=== PATIENT | female | born 1990 | race Two or more races ===

== ENCOUNTER 2021-09-11 10:36 | Inpatient (IN) | payer BC, OTHER ==
[~2021-09-11] VITALS: Ht 160 cm; Wt 153.5 kg
[2021-09-11] MEDS ORDERED: CHOLECALCIFEROL (VITD3) 2,000 UNIT CAP/TAB PO ONE (11:00)
[2021-09-11] MEDS ORDERED: methylPREDNISolone SOD SUCC 125 MG/2 ML VL IV ONE (11:00)
[2021-09-11] MEDS ORDERED: ASCORBIC ACID 500 MG TAB PO ONE (11:00)
[2021-09-11] MEDS ORDERED: ZINC SULFATE 220mg CAP or TAB PO ONE (11:00)
[2021-09-11 13:43] LABS: Basophils # (auto) 0 10 ^3/uL (0-0.2); Basophils % (auto) 0.3 % (0.0-2.0); Eosinophils # (auto) 0 10 ^3/uL (0-0.8); Hematocrit 41.3 % (36.0-46.0); Lymphocytes % (auto) 15.3 % (10.0-50.0); Mean Corpuscular Hemoglobin 27.1 pg (28.0-32.0); Mean Corpuscular Volume 79.6 fL (80.0-100.0); Monocytes # (auto) 0.5 10 ^3/uL (0-1.3); Monocytes % (auto) 7.6 % (0.0-12.0); Neutrophils # (auto) 5.1 10 ^3/uL (1.6-8.6); Neutrophils % (auto) 76.8 % (37.0-80.0); Nucleated Red Blood Cells % 0.1 %; Red Blood Cells 5.19 10^6/uL (4.0-5.20); Red Cell Distribution Width 13.6 % (11.8-14.3); White Blood Cell 6.6 10^3/uL (4.4-10.8)
[2021-09-11 14:07] LABS: Calcium 8.2 mg/dL (8.5-10.1); Potassium 4.2 mmol/L (3.5-5.1)
[2021-09-11 14:15] LABS: Bilirubin, Total 0.6 mg/dL (0.2-1.0); CRP High Sensitivity 10.7 mg/dL (< 0.3); Total Protein 8.1 g/dL (6.4-8.2)
[2021-09-11] MEDS ORDERED: AZITHROMYCIN 500MG/ 250ML 250 ML IV ONE (15:30)
[2021-09-11] MEDS ORDERED: LABETALOL HCL 5 MG/ML 4ML SYRINGE IV PRN (18:45)
[2021-09-11] MEDS ORDERED: DEXTROSE (50%) 50ML SYRG IV PRN (18:45)
[2021-09-11] MEDS ORDERED: SODIUM CHLORIDE 0.9% 3,000 ML IV ONE (18:45)
[2021-09-11] MEDS ORDERED: NITROGLYCERIN 0.4 MG SL TAB SL PRN (18:45)
[2021-09-11] MEDS ORDERED: DOCUSATE CALCIUM 240 MG CAP PO PRN (18:45)
[2021-09-11] MEDS ORDERED: ACETAMINOPHEN 500 MG TAB PO PRN (18:45)
[2021-09-11] MEDS ORDERED: IPRATROPIUM BROM 0.5 MG/2.5ML INH SOL NEB PRN (18:45)
[2021-09-11] MEDS ORDERED: ONDANSETRON HCL 4 MG/2 ML VIAL IV PRN (18:45)
[2021-09-11] MEDS ORDERED: MORPHINE SULFATE INJECTION 2 MG/ML SYRG IV PRN ×2 (18:45)
[2021-09-11 20:00] VITALS: BP 129/80
[2021-09-11] MEDS: ACCU-CHEK COMFORT CURVE STRIP VI SCH (20:14)
[2021-09-11] MEDS: InsuLIN REG 1unit/0.01ml Soln (100units/ml) SC SCH (20:20)
[2021-09-11] MEDS ORDERED: cefTRIAXone 1GM/50ML D5W 50 ML IV ONE (20:45)
[2021-09-11 22:00] VITALS: BP 121/73
[2021-09-11] MEDS: BUDESONIDE (INHALATION) 180 MCG IH IN SCH (22:00)
[2021-09-11] MEDS: ENOXAPARIN SOD 60 MG/0.6 ML SYRINGE SC SCH (22:41)
[2021-09-11] MEDS: INSULIN LANTUS (GLARGINE) 1 /0.01ml (100units/ml) SC SCH (22:49)
[2021-09-12] VITALS (7 sets, daily range): BP systolic 117–148; BP diastolic 73–89
[2021-09-12] MEDS: InsuLIN REG 1unit/0.01ml Soln (100units/ml) SC SCH ×7 (00:12→23:51)
[2021-09-12] MEDS: ACCU-CHEK COMFORT CURVE STRIP VI SCH ×7 (00:13→23:50)
[2021-09-12 08:11] LABS: Basophils # (auto) 0.1 10 ^3/uL (0-0.2); Basophils % (auto) 1.9 % (0.0-2.0); Eosinophils # (auto) 0 10 ^3/uL (0-0.8); Hematocrit 38.8 % (36.0-46.0); Hemoglobin 13.1 g/dL (12.2-16.2); Lymphocytes # (auto) 0.7 10 ^3/uL (0.4-5.4); Lymphocytes % (auto) 17.4 % (10.0-50.0); Mean Corpuscular Hemoglobin 27.3 pg (28.0-32.0); Mean Corpuscular Hgb Conc. 33.8 g/dL (32.0-36.0); Mean Corpuscular Volume 80.9 fL (80.0-100.0); Monocytes # (auto) 0.5 10 ^3/uL (0-1.3); Monocytes % (auto) 12.2 % (0.0-12.0); Neutrophils # (auto) 2.8 10 ^3/uL (1.6-8.6); Neutrophils % (auto) 68.5 % (37.0-80.0); Nucleated Red Blood Cells % 0.1 %; Red Cell Distribution Width 14.2 % (11.8-14.3); White Blood Cell 4.1 10^3/uL (4.4-10.8)
[2021-09-12 08:19] LABS: Albumin 2.7 g/dL (3.4-5.0); Calcium 8.2 mg/dL (8.5-10.1); Magnesium 2.8 mg/dL (1.6-2.6); Potassium 3.8 mmol/L (3.5-5.1)
[2021-09-12 08:22] LABS: BUN/Creatinine Ratio 17.3; Bilirubin, Total 0.4 mg/dL (0.2-1.0); Total Protein 7.7 g/dL (6.4-8.2)
[2021-09-12 08:32] LABS: Thyroid Stimulating Hormone 0.68 uIU/mL (0.358-3.74)
[2021-09-12] MEDS: cefTRIAXone 1GM/50ML D5W 50 ML IV SCH (08:42)
[2021-09-12] MEDS: ENOXAPARIN SOD 60 MG/0.6 ML SYRINGE SC SCH ×2 (09:35→22:20)
[2021-09-12] MEDS: CHOLECALCIFEROL (VITD3) 2,000 UNIT CAP/TAB PO SCH (09:35)
[2021-09-12] MEDS: AZITHROMYCIN 500MG/ 250ML 250 ML IV SCH (09:35)
[2021-09-12] MEDS: PANTOPRAZOLE 40 MG TAB PO SCH (09:35)
[2021-09-12] MEDS: ASCORBIC ACID 1,000 MG TAB PO SCH (09:35)
[2021-09-12] MEDS: ZINC SULFATE 220mg CAP or TAB PO SCH (09:35)
[2021-09-12] MEDS: DexAMETHasone SOD PHOS 10MG/1ML VIAL INJ IV SCH (09:35)
[2021-09-12] MEDS: BUDESONIDE (INHALATION) 180 MCG IH IN SCH ×2 (10:15→21:51)
[2021-09-12] MEDS: ALBUTEROL SULF HFA 90MCG INH 200DOSE IN PRN ×2 (10:16→21:51)
[2021-09-12] MEDS ORDERED: REMDESIVIR PER PHARMACY 0 ML IV SCH (10:45)
[2021-09-12] MEDS ORDERED: FAMOTIDINE (10MG/ML) 2ML VL IV ONE (10:45)
[2021-09-12] MEDS ORDERED: REMDESIVIR 200 MG in NS 210ml LOADING DOSE ADULT IV ONE (13:30)
[2021-09-12] MEDS: INSULIN LANTUS (GLARGINE) 1 /0.01ml (100units/ml) SC SCH (22:30)
[2021-09-13] MEDS: ACCU-CHEK COMFORT CURVE STRIP VI SCH ×5 (03:43→23:59)
[2021-09-13] MEDS: InsuLIN REG 1unit/0.01ml Soln (100units/ml) SC SCH ×5 (03:44→23:59)
[2021-09-13 05:00] VITALS: BP 115/77
[2021-09-13 07:47] LABS: Potassium 3.9 mmol/L (3.5-5.1)
[2021-09-13 07:54] LABS: Albumin 2.5 g/dL (3.4-5.0); BUN/Creatinine Ratio 22.2; Bilirubin, Total 0.3 mg/dL (0.2-1.0); Calcium 8.5 mg/dL (8.5-10.1); Total Protein 7.2 g/dL (6.4-8.2)
[2021-09-13 08:15] VITALS: BP 126/88
[2021-09-13] MEDS: cefTRIAXone 1GM/50ML D5W 50 ML IV SCH (08:32)
[2021-09-13 09:00] VITALS: BP 118/73
[2021-09-13] MEDS: FAMOTIDINE (10MG/ML) 2ML VL IV SCH (09:55)
[2021-09-13] MEDS: CHOLECALCIFEROL (VITD3) 2,000 UNIT CAP/TAB PO SCH (09:56)
[2021-09-13] MEDS: ASCORBIC ACID 1,000 MG TAB PO SCH (09:56)
[2021-09-13] MEDS: ENOXAPARIN SOD 60 MG/0.6 ML SYRINGE SC SCH ×2 (09:56→21:39)
[2021-09-13] MEDS: ZINC SULFATE 220mg CAP or TAB PO SCH (09:56)
[2021-09-13] MEDS: PANTOPRAZOLE 40 MG TAB PO SCH (09:56)
[2021-09-13] MEDS: DexAMETHasone SOD PHOS 10MG/1ML VIAL INJ IV SCH (10:57)
[2021-09-13] MEDS: AZITHROMYCIN 500MG/ 250ML 250 ML IV SCH (10:57)
[2021-09-13 13:00] VITALS: BP 126/88
[2021-09-13] MEDS: BUDESONIDE (INHALATION) 180 MCG IH IN SCH ×2 (15:11→23:30)
[2021-09-13] MEDS: ALBUTEROL SULF HFA 90MCG INH 200DOSE IN PRN (15:11)
[2021-09-13] MEDS: REMDESIVIR 100mg 100 MG in SODIUM CHL 0.9% 230 ML IV SCH (15:47)
[2021-09-13] MEDS ORDERED: DEXTROSE (50%) 50ML SYRG IV PRN (17:00)
[2021-09-13 17:24] VITALS: BP 136/94
[2021-09-13] MEDS: INSULIN LANTUS (GLARGINE) 1 /0.01ml (100units/ml) SC SCH (21:39)
[2021-09-13 22:00] VITALS: BP 136/85
[2021-09-14] MEDS: ALBUTEROL SULF HFA 90MCG INH 200DOSE IN PRN ×3 (00:24→19:42)
[2021-09-14] MEDS: ACCU-CHEK COMFORT CURVE STRIP VI SCH ×6 (04:28→23:54)
[2021-09-14] MEDS: InsuLIN REG 1unit/0.01ml Soln (100units/ml) SC SCH ×5 (04:28→20:30)
[2021-09-14 05:00] VITALS: BP 97/66
[2021-09-14] MEDS: BUDESONIDE (INHALATION) 180 MCG IH IN SCH ×2 (06:58→19:42)
[2021-09-14 07:26] LABS: Albumin 2.5 g/dL (3.4-5.0); BUN/Creatinine Ratio 22.4; Bilirubin, Total 0.3 mg/dL (0.2-1.0); Calcium 8.5 mg/dL (8.5-10.1); Total Protein 6.8 g/dL (6.4-8.2)
[2021-09-14 08:15] VITALS: BP 101/61
[2021-09-14] MEDS: cefTRIAXone 1GM/50ML D5W 50 ML IV SCH (08:34)
[2021-09-14 09:00] VITALS: BP 101/67
[2021-09-14] MEDS: ZINC SULFATE 220mg CAP or TAB PO SCH (09:52)
[2021-09-14] MEDS: FAMOTIDINE (10MG/ML) 2ML VL IV SCH (09:52)
[2021-09-14] MEDS: PANTOPRAZOLE 40 MG TAB PO SCH (09:52)
[2021-09-14] MEDS: DexAMETHasone SOD PHOS 10MG/1ML VIAL INJ IV SCH (09:52)
[2021-09-14] MEDS: AZITHROMYCIN 500MG/ 250ML 250 ML IV SCH (09:52)
[2021-09-14] MEDS: ASCORBIC ACID 1,000 MG TAB PO SCH (09:53)
[2021-09-14] MEDS: ENOXAPARIN SOD 60 MG/0.6 ML SYRINGE SC SCH ×2 (09:53→22:37)
[2021-09-14] MEDS: CHOLECALCIFEROL (VITD3) 2,000 UNIT CAP/TAB PO SCH (09:53)
[2021-09-14 13:17] VITALS: BP 104/71
[2021-09-14] MEDS: REMDESIVIR 100mg 100 MG in SODIUM CHL 0.9% 230 ML IV SCH (15:07)
[2021-09-14 17:00] VITALS: BP 133/80
[2021-09-14 22:00] VITALS: BP 120/82
[2021-09-14] MEDS: INSULIN LANTUS (GLARGINE) 1 /0.01ml (100units/ml) SC SCH (22:33)
[2021-09-15] VITALS (8 sets, daily range): BP systolic 93–137; BP diastolic 62–93
[2021-09-15] MEDS: InsuLIN REG 1unit/0.01ml Soln (100units/ml) SC SCH ×6 (00:06→22:08)
[2021-09-15] MEDS: ACCU-CHEK COMFORT CURVE STRIP VI SCH ×5 (04:00→22:07)
[2021-09-15] MEDS: BUDESONIDE (INHALATION) 180 MCG IH IN SCH ×2 (06:13→21:05)
[2021-09-15] MEDS: ALBUTEROL SULF HFA 90MCG INH 200DOSE IN PRN ×2 (06:13→21:05)
[2021-09-15 07:53] LABS: Potassium 3.9 mmol/L (3.5-5.1)
[2021-09-15 07:58] LABS: Albumin 2.5 g/dL (3.4-5.0); BUN/Creatinine Ratio 26.7; Calcium 8.5 mg/dL (8.5-10.1)
[2021-09-15 08:01] LABS: Bilirubin, Total 0.4 mg/dL (0.2-1.0); Total Protein 6.6 g/dL (6.4-8.2)
[2021-09-15] MEDS: cefTRIAXone 1GM/50ML D5W 50 ML IV SCH (09:26)
[2021-09-15] MEDS: CHOLECALCIFEROL (VITD3) 2,000 UNIT CAP/TAB PO SCH (09:57)
[2021-09-15] MEDS: ASCORBIC ACID 1,000 MG TAB PO SCH (09:57)
[2021-09-15] MEDS: ENOXAPARIN SOD 60 MG/0.6 ML SYRINGE SC SCH ×2 (09:57→22:07)
[2021-09-15] MEDS: DexAMETHasone SOD PHOS 10MG/1ML VIAL INJ IV SCH (09:57)
[2021-09-15] MEDS: FAMOTIDINE (10MG/ML) 2ML VL IV SCH (09:57)
[2021-09-15] MEDS: ZINC SULFATE 220mg CAP or TAB PO SCH (09:57)
[2021-09-15] MEDS: PANTOPRAZOLE 40 MG TAB PO SCH (09:57)
[2021-09-15] MEDS: AZITHROMYCIN 500MG/ 250ML 250 ML IV SCH (09:57)
[2021-09-15] MEDS ORDERED: DEXTROSE (50%) 50ML SYRG IV PRN (11:30)
[2021-09-15] MEDS: REMDESIVIR 100mg 100 MG in SODIUM CHL 0.9% 230 ML IV SCH (15:48)
[2021-09-15 19:58] LABS: Urine Bacteria NONE SEEN /hpf (None Seen); Urine Blood Negative /uL (Negative); Urine Specific Gravity 1.018 (1.001-1.035); Urine WBC 1 /hpf (0 - 5)
[2021-09-15] MEDS: INSULIN LANTUS (GLARGINE) 1 /0.01ml (100units/ml) SC SCH (22:10)
[2021-09-16] MEDS: ACCU-CHEK COMFORT CURVE STRIP VI SCH ×4 (06:01→21:19)
[2021-09-16] MEDS: InsuLIN REG 1unit/0.01ml Soln (100units/ml) SC SCH ×4 (06:01→21:19)
[2021-09-16] MEDS: BUDESONIDE (INHALATION) 180 MCG IH IN SCH ×2 (07:18→21:22)
[2021-09-16] MEDS: ALBUTEROL SULF HFA 90MCG INH 200DOSE IN PRN ×2 (07:18→21:22)
[2021-09-16 08:11] LABS: Albumin 2.5 g/dL (3.4-5.0); Calcium 8.3 mg/dL (8.5-10.1); Potassium 3.9 mmol/L (3.5-5.1)
[2021-09-16 08:16] LABS: BUN/Creatinine Ratio 26.2; Bilirubin, Total 0.4 mg/dL (0.2-1.0); Total Protein 6.6 g/dL (6.4-8.2)
[2021-09-16 09:00] VITALS: BP 118/78
[2021-09-16] MEDS: ZINC SULFATE 220mg CAP or TAB PO SCH (09:04)
[2021-09-16] MEDS: ASCORBIC ACID 1,000 MG TAB PO SCH (09:04)
[2021-09-16] MEDS: DexAMETHasone SOD PHOS 10MG/1ML VIAL INJ IV SCH (09:04)
[2021-09-16] MEDS: cefTRIAXone 1GM/50ML D5W 50 ML IV SCH (09:04)
[2021-09-16] MEDS: FAMOTIDINE (10MG/ML) 2ML VL IV SCH (09:04)
[2021-09-16] MEDS: CHOLECALCIFEROL (VITD3) 2,000 UNIT CAP/TAB PO SCH (09:04)
[2021-09-16] MEDS: PANTOPRAZOLE 40 MG TAB PO SCH (09:04)
[2021-09-16] MEDS: AZITHROMYCIN 250 MG TAB PO SCH (09:05)
[2021-09-16] MEDS: ENOXAPARIN SOD 60 MG/0.6 ML SYRINGE SC SCH ×2 (09:05→21:29)
[2021-09-16] MEDS: INSULIN LANTUS (GLARGINE) 1 /0.01ml (100units/ml) SC SCH ×2 (09:06→21:28)
[2021-09-16 13:00] VITALS: BP 119/60
[2021-09-16] MEDS: REMDESIVIR 100mg 100 MG in SODIUM CHL 0.9% 230 ML IV SCH (15:39)
[2021-09-16 17:00] VITALS: BP 120/64
[2021-09-16 21:32] VITALS: BP 108/62
[2021-09-17 05:30] VITALS: BP 109/71
[2021-09-17] MEDS: InsuLIN REG 1unit/0.01ml Soln (100units/ml) SC SCH ×2 (06:20→11:53)
[2021-09-17] MEDS: ACCU-CHEK COMFORT CURVE STRIP VI SCH ×2 (06:20→11:52)
[2021-09-17] MEDS: cefTRIAXone 1GM/50ML D5W 50 ML IV SCH (07:59)
[2021-09-17] MEDS: DexAMETHasone SOD PHOS 10MG/1ML VIAL INJ IV SCH (08:41)
[2021-09-17] MEDS: ZINC SULFATE 220mg CAP or TAB PO SCH (08:41)
[2021-09-17] MEDS: ENOXAPARIN SOD 60 MG/0.6 ML SYRINGE SC SCH (08:42)
[2021-09-17] MEDS: ASCORBIC ACID 1,000 MG TAB PO SCH (08:42)
[2021-09-17] MEDS: AZITHROMYCIN 250 MG TAB PO SCH (08:42)
[2021-09-17] MEDS: CHOLECALCIFEROL (VITD3) 2,000 UNIT CAP/TAB PO SCH (08:42)
[2021-09-17] MEDS: PANTOPRAZOLE 40 MG TAB PO SCH (08:42)
[2021-09-17 09:00] VITALS: BP 101/55
[2021-09-17] MEDS: INSULIN LANTUS (GLARGINE) 1 /0.01ml (100units/ml) SC SCH (09:32)
[2021-09-17] MEDS: BUDESONIDE (INHALATION) 180 MCG IH IN SCH (09:36)
[2021-09-17] MEDS: ALBUTEROL SULF HFA 90MCG INH 200DOSE IN PRN (09:36)
[2021-09-17] MEDS ORDERED: FAMOTIDINE 20 MG TAB PO SCH (10:00)
[2021-09-17 12:15] VITALS: BP 101/55
[2021-09-17 12:19] VITALS: BP 109/71
== END 2021-09-17 16:33 | disposition home or self-care (01) | DRG 871 ==
LOC: EDBD 10:36 → ER 10:36 → TELE 18:34 → TELE-EAST 20:28
PROVIDERS: ADMIT Family Medicine; ATTEND Internal Medicine
PROC: XW033E5 Introduction of Remdesivir Anti-infective into Peripheral Vein, Percutaneous Approach, New Technology Group 5 (ICD-10-PCS; principal; 2021-09-12)
DX: A41.89 Other specified sepsis (principal); J96.01 Acute respiratory failure with hypoxia; J12.82 Pneumonia due to coronavirus disease 2019; U07.1 COVID-19; Z68.43 Body mass index [BMI] 50.0-59.9, adult; D89.839 Cytokine release syndrome, grade unspecified; E11.65 Type 2 diabetes mellitus with hyperglycemia; E66.01 Morbid (severe) obesity due to excess calories; E86.0 Dehydration; E87.6 Hypokalemia; Z83.3 Family history of diabetes mellitus; Z98.84 Bariatric surgery status; Z90.49 Acquired absence of other specified parts of digestive tract
CPT/HCPCS: 36415; 71045; 80053; 81001; 82306; 82728; 82962; 83036; 83605; 83615; 83735; 84443; 84484; 85025; 85379; 86141; 87040; 87426; 93005; 94640; 96365; 96375; G0378; J0696; J1100; J1815; J3490

== ENCOUNTER 2023-09-15 15:16 | Emergency (ER) | payer BC, MEDICAID ==
[~2023-09-15] VITALS: Ht 157.5 cm; Wt 138.1 kg
[2023-09-15 16:29] LABS: Basophils # (auto) 0.1 10 ^3/uL (0-0.2); Basophils % (auto) 0.7 % (0.0-2.0); Eosinophils # (auto) 0.1 10 ^3/uL (0-0.8); Eosinophils % (auto) 1.3 % (0.0-7.0); Hematocrit 46.4 % (36.0-46.0); Hemoglobin 15.1 g/dL (12.2-16.2); Lymphocytes # (auto) 3.2 10 ^3/uL (0.4-5.4); Lymphocytes % (auto) 28.5 % (10.0-50.0); Mean Corpuscular Hemoglobin 28.5 pg (28.0-32.0); Mean Corpuscular Hgb Conc. 32.6 g/dL (32.0-36.0); Mean Corpuscular Volume 87.6 fL (80.0-100.0); Monocytes # (auto) 0.9 10 ^3/uL (0-1.3); Monocytes % (auto) 7.6 % (0.0-12.0); Neutrophils % (auto) 61.9 % (37.0-80.0); Red Cell Distribution Width 13.8 % (11.8-14.3); White Blood Cell 11.4 10^3/uL (4.4-10.8)
[2023-09-15 16:33] LABS: Alanine Aminotransferase 46 U/L (7-40); Albumin 4.5 g/dL (3.2-4.8); Alkaline Phosphatase 98 U/L (46-116); Anion Gap 10 (5-15); Aspartate Aminotransferase 39 U/L (13-40); BUN/Creatinine Ratio 11.7 (10.0-20.0); Blood Urea Nitrogen 9 mg/dL (9-23); Calcium 9.4 mg/dL (8.5-10.1); Carbon Dioxide 24 mmol/L (20-30); Chloride 103 mmol/L (98-107); Glucose 189 mg/dL (74-106); Potassium 3.7 mmol/L (3.5-5.1); Sodium 137 mmol/L (136-145)
[2023-09-15 16:34] LABS: Bilirubin, Total 0.6 mg/dL (0.2-1.0); Total Protein 7.5 g/dL (5.7-8.2)
[2023-09-15 17:51] LABS: Urine Bacteria NONE SEEN /hpf (None Seen); Urine Blood 3+ /uL (Negative); Urine Clarity HAZY (Clear); Urine Color Red (Yellow); Urine Protein, UAD 2+ (Negative); Urine Specific Gravity 1.023 (1.001-1.035); Urine Urobilinogen Normal (Negative); Urine WBC 153 /hpf (0 - 5); Urine pH 5.5 (5.0-8.0)
[2023-09-15 20:07] VITALS: BP 150/71; PULSE 90; RESP 20; TEMP 98.2; O2SAT 98
== END 2023-09-15 20:11 | disposition home or self-care (01) ==
LOC: ER 15:16
DX: O20.0 Threatened abortion (principal); Z90.49 Acquired absence of other specified parts of digestive tract
CPT/HCPCS: 36415; 76801; 76817; 80053; 81001; 81025; 84702; 85025; 86850; 86900; 86901